=== PATIENT | female | born 2000 | race Two or more races ===

== ENCOUNTER 2023-04-04 07:43 | Emergency (ER) | payer SELFPAY ==
[~2023-04-04] VITALS: Ht 157.5 cm; Wt 76.0 kg
[2023-04-04 08:28] LABS: Basophils # (auto) 0.1 10 ^3/uL (0-0.2); Basophils % (auto) 0.5 % (0.0-2.0); Eosinophils # (auto) 0 10 ^3/uL (0-0.8); Eosinophils % (auto) 0.2 % (0.0-7.0); Hemoglobin 15.9 g/dL (12.2-16.2); Lymphocytes # (auto) 2.3 10 ^3/uL (0.4-5.4); Lymphocytes % (auto) 11.7 % (10.0-50.0); Mean Corpuscular Hemoglobin 30.6 pg (28.0-32.0); Mean Corpuscular Hgb Conc. 33.8 g/dL (32.0-36.0); Mean Corpuscular Volume 90.3 fL (80.0-100.0); Monocytes # (auto) 0.8 10 ^3/uL (0-1.3); Monocytes % (auto) 3.9 % (0.0-12.0); Neutrophils # (auto) 16.7 10 ^3/uL (1.6-8.6); Neutrophils % (auto) 83.7 % (37.0-80.0); Nucleated Red Blood Cells % 0.1 %; Red Blood Cells 5.21 10^6/uL (4.0-5.20); Red Cell Distribution Width 12.8 % (11.8-14.3); White Blood Cell 19.9 10^3/uL (4.4-10.8)
[2023-04-04 08:29] VITALS: PULSE 68; RESP 14; O2SAT 97
[2023-04-04] MEDS ORDERED: ONDANSETRON HCL 4 MG/2 ML VIAL IV ONE (08:30)
[2023-04-04 08:31] VITALS: BP 136/108; PULSE 68; RESP 11; TEMP 98.1; O2SAT 100
[2023-04-04 08:35] LABS: Albumin 3.2 g/dL (3.4-5.0); Potassium 3.6 mmol/L (3.5-5.1)
[2023-04-04 08:39] LABS: BUN/Creatinine Ratio 16.2 (10.0-20.0); Bilirubin, Total 0.4 mg/dL (0.2-1.0); Total Protein 6.5 g/dL (6.4-8.2)
[2023-04-04 08:50] LABS: Urine Bacteria FEW /hpf (None Seen); Urine Blood Negative /uL (Negative); Urine Clarity Clear (Clear); Urine Color Yellow (Yellow); Urine Mucus FEW (None Seen); Urine Protein, UAD Negative (Negative); Urine Specific Gravity 1.021 (1.001-1.035); Urine Urobilinogen Normal (Negative); Urine WBC 5 /hpf (0 - 5)
[2023-04-04] MEDS ORDERED: NITR-87 PO (10:05)
[2023-04-04] MEDS ORDERED: cefTRIAXone 1GM/50ML D5W 50 ML IV ONE (10:15)
== END 2023-04-04 10:33 | disposition home or self-care (01) ==
LOC: ER 07:43
DX: N39.0 Urinary tract infection, site not specified (principal); R10.2 Pelvic and perineal pain; R10.84 Generalized abdominal pain
CPT/HCPCS: 36415; 74176; 80053; 81001; 83690; 84702; 85025; 96365; 96375; 99285; J0696; J2405

== ENCOUNTER 2025-04-29 12:29 | Inpatient (IN) | payer MEDICAID, OTHER ==
[~2025-04-29] VITALS: Ht 157.5 cm; Wt 70.9 kg
[~2025-04-29 12:29] MED LIST: NITR-87 PO
--- NOTE | 2025-04-29 12:45 | ED.PDOC ---
GI ASSESSMENT HPI Comments 25 y/o F, with no prior medical history presents to the ED for CC of nausea/vomiting. Patient states, she has been experiencing symptoms of nausea and vomiting sudden onset, 2200 last night (04/28/25). Patient reports, she has been unable to keep anything down following commencement of symptoms. Patient denies fever, sweats, hematemesis, diarrhea, or urinary symptoms. No other symptoms or modifying factors are present at this time. Chief Complaint: Nausea/Vomiting Time Seen by MD: 12:45 Reviewed Notes: Nurses Notes, Medications, Allergies Allergies: Coded Allergies: NO KNOWN ALLERGIES (Unverified , 04/04/23) Home Meds Active Scripts Nitrofurantoin Monohydrate Mac (Macrobid) 100 Mg Cap, 100 MG PO BID for 7 Days, #14 CAP Prov:NICKY KAY MD 04/04/23 Information Source: Patient Mode of Arrival: Ambulatory Timing: Hours Duration: Since onset Prehospital treatment: None Quality: None Vomitus: Watery Stool: Normal Severity: Moderate Recent: None Recent Hx of: None Pain Location: None Modifying Factors: Nothing Associated sign and symptoms: Nausea, Vomiting Past Medical History PAST MEDICAL HISTORY: Unknown Surgical History: Unknown 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 Family History Family History: Family hx of HTN Social History Smoker: Non-Smoker Alcohol: Occasionally Drugs: Denies Drug Use Lives In: Home Constitutional: denies: chills, diaphoresis, fatigue, fever, malaise, sweats, weakness, others EENTM: denies: blurred vision, double vision, ear bleeding, ear discharge, ear drainage, ear pain, ear ringing, eye pain, eye redness, hearing loss, mouth pain, mouth swelling, nasal discharge, nose bleeding, nose congestion, nose pain, photophobia, tearing, throat pain, throat swelling, voice changes, others Respiratory: denies: cough, hemoptysis, orthopnea, SOB at rest, shortness of breath, SOB with excertion, stridor, wheezing, others Cardiovascular: denies: chest pain, dizzy spells, diaphoresis, Dyspnea on exertion, edema, irregular heart beat, left arm pain, lightheadedness, palpitations, PND, syncope, others Gastrointestinal: reports: nausea, vomiting; denies: abdomen distended, abdominal pain, blood streaked bowels, constipated, diarrhea, dysphagia, difficulty swallowing, hematemesis, melena, poor appetite, poor fluid intake, rectal bleeding, rectal pain, others Genitourinary: denies: abnormal vagina bleeding, burning, dyspareunia, dysuria, flank pain, frequency, hematuria, incontinence, pain, , vagina discharge, urgency, others Neurological: denies: dizziness, fainting, headache, left sided numbness, left sided weakness, numbness, paresthesia, pre-existing deficit, right sided numbness, right sided weakness, seizure, speech problems, tingling, tremors, weakness, others Musculoskeletal: denies: back pain, gout, joint pain, joint swelling, muscle pain, muscle stiffness, neck pain, others Integumetry: denies: bruises, change in color, change in hair/nails, dryness, laceration, lesions, lumps, rash, wounds, others Allergic/Immunocompromised: denies: Difficulty Healing, Frequent Infections, Hives, Itching, others Hematologic/Lymphatic: denies: anemia, blood clots, easy bleeding, easy br uising, swollen glands, others Endocrine: denies: excessive hunger, excessive sweating, excessive thirst, excessive urination, flushing, intolerance to cold, intolerance to heat, unexplained weight gain, unexplained weight loss, others Psychiatric: denies: anxiety, bipolar disorder, depression, hopeless, panic disorder, schizophrenia, sleepless, suicidal, others All Other Systems: Reviewed and Negative Physical Exam General Appearance: Moderate Distress HEENT: Normal ENT Inspection, Pharynx Normal, TMs Normal Neck: Full Range of Motion, Non-Tender, Normal, Normal Inspection Respiratory: Chest Non-Tender, Lungs Clear, No Accessory Muscle Use, No Respiratory Distress, Normal Breath Sounds Cardiovascular: No Edema, No JVD, No Murmur, No Gallop, Tachycardia Breast Exam: Deferred Gastrointestinal: No Organomegaly, Non Tender, No Pulsatile Mass, Normal Bowel Sounds, Soft Genitalia: Deferred Pelvic: Deferred Rectal: Deferred Extremities: No calf tenderness, Normal capillary refill, Normal inspection, Normal range of motion, Non-tender, No pedal edema Musculoskeletal : Apperance: Normal Neurologic: Alert, painter tumbling barrel II-XII nml as Tested, No Motor Deficits, Normal Affect, Normal Mood, No Sensory Deficits Cerebellar Function: Normal Reflexes: Normal Skin: Dry, Normal Color, Warm Lymphatic: No Adenopathy EKG EKG : Pulse Rate (adult): 156 [place]: Normal Cardiac Rhythm: ST Block: None ST: Nonsp Was a procedure done? Was a procedure done?: No GI differential Dx Differential Diagnosis: Gastritis/PUD, Gastroenteritis, Electrolyte Imbalance, Food Poisoning, Bacterial, Viral X-Ray, Labs, Meds, VS Vital Signs Date Time Temp Pulse Resp B/P (MAP) Pulse Ox O2 Delivery O2 Flow Rate FiO2 04/29/25 17:31 152 26 158/101 (120) 98 04/29/25 17:31 152 26 98 Room Air* 0 21 04/29/25 16:49 165 04/29/25 16:18 184/120 04/29/25 16:11 98.3 110 17 184/120 (141) 97 98.3 04/29/25 14:32 97.7 113 16 193/132 (152) 99 97.7 04/29/25 13:22 18 98 Room Air* 0 21 04/29/25 13:19 98.7 123 17 164/124 (137) 98 98.7 04/29/25 13:19 123 16 98 Room Air 04/29/25 12:31 99.0 129 15 160/107 95 99.0 Lab Test 04/29/25 15:47 04/29/25 13:27 04/29/25 13:00 Range/Units Lipase 36 12-53 U/L Plasma/Serum Blood Alcohol < 3.0 <10 mg/dL White Blood Count 10.8 4.4-10.8 10^3/uL Red Blood Count 5.21 H 4.0-5.20 10^6/uL Hemoglobin 16.3 H 12.2-16.2 g/dL Hematocrit 46.4 H 36.0-46.0 % Mean Corpuscular Volume 89.1 80.0-100.0 fL Mean Corpuscular Hemoglobin 31.3 28.0-32.0 pg Mean Corpuscular Hemoglobin Concent 35.1 32.0-36.0 g/dL Red Cell Distribution Width 13.5 11.8-14.3 % Platelet Count 490 H 140-450 10^3/uL Mean Platelet Volume 7.1 6.9-10.8 fL Neutrophils (%) (Auto) 89.9 H 37.0-80.0 % Lymphocytes (%) (Auto) 4.8 L 10.0-50.0 % Monocytes (%) (Auto) 5.1 0.0-12.0 % Eosinophils (%) (Auto) 0.1 0.0-7.0 % Basophils (%) (Auto) 0.1 0.0-2.0 % Neutrophils # (Auto) 9.7 H 1.6-8.6 10 ^3/uL Lymphocytes # (Auto) 0.5 0.4-5.4 10 ^3/uL Monocytes # (Auto) 0.5 0-1.3 10 ^3/uL Eosinophils # (Auto) 0 0-0.8 10 ^3/uL Basophils # (Auto) 0 0-0.2 10 ^3/uL Nucleated Red Blood Cells 0.0 % D-Dimer, Quantitative 0.55 H 0.0-0.49 mg/L FEU Sodium Level 140 136-145 mmol/L Potassium Level 4.6 3.5-5.1 mmol/L Chloride Level 99 98-107 mmol/L Carbon Dioxide Level 20 20-31 mmol/L Anion Gap 21 H 5-15 Blood Urea Nitrogen 12 9-23 mg/dL Creatinine 0.96 0.550-1.02 mg/dL Glomerular Filtration Rate Calc 84 >90 mL/min BUN/Creatinine Ratio 12.5 10.0-20.0 Serum Glucose 182 H 74-106 mg/dL Calcium Level 10.3 8.7-10.4 mg/dL Urine Color Yellow Yellow Urine Clarity Turbid H Clear Urine pH 5.5 5.0-9.0 Urine Specific [place] 1.029 1.001-1.035 Urine Protein 2+ H Negative Urine Ketones 4+ H Negative Urine Blood Trace H Negative /uL Urine Nitrite Negative Negative Urine Bilirubin 1+ H Negative Urine Urobilinogen 2 H Negative mg/dL Urine Leukocyte Esterase Negative Negative /uL Urine RBC 4 0 - 4 /hpf Urine Microscopic WBC 5 0-5 /HPF Urine Squamous Epithelial Cells Few <5 /hpf Urine Bacteria Few H None Seen /hpf Urine Hyaline Casts Many 0 - 2 /lpf Urine Mucus Few None Seen Urine Glucose Trace Normal mg/dL Urine Test Negative Negative Urine Opiates Screen Pending Urine Fentanyl Screen Pending Urine Barbiturates Screen Pending Urine Phencyclidine Screen Pending Urine Amphetamines Screen Pending Urine Benzodiazepines Screen Pending Urine Cocaine Screen Pending Urine Cannabinoids Screen Pending Current Medications Medications (Trade) Dose Ordered Sig/Zahida Route Start Time Stop Time Status Last Admin Sodium Chloride 1,000 ml @ 1,000 mls/hr Q1H ONCE IV 04/29/25 13:00 04/29/25 13:59 DC 04/29/25 16:10 Ondansetron HCl (Zofran) 4 mg ONCE ONCE IV 04/29/25 13:00 04/29/25 13:01 DC 04/29/25 13:24 Hydralazine HCl (Apresoline Injection) 20 mg ONCE ONCE IV 04/29/25 15:45 04/29/25 15:57 DC 04/29/25 16:18 Prochlorperazine Edisylate (Compazine Inj) 10 mg ONCE ONCE IV 04/29/25 17:00 04/29/25 17:01 DC 04/29/25 17:27 Adenosine (Adenosine) 6 mg ONCE ONCE IV 04/29/25 17:15 04/29/25 17:16 DC 04/29/25 17:22 IV Hep-Lock was established The patient was given a 1 L bolus of normal saline The patient was given Zofran 4 mg IV push for the nausea and vomiting The patient was given hydralazine 20 mg IV push The patient was given Compazine 10 mg IV push for the vomiting We then try adenosine 6 mg IV push with no significant conversion. The heart rate went down to around 100 and then went back up to around 156 At this time the patient is being given labetalol 10 mg IV push The patient is being admitted to the hospitalist The CBC is within normal limits The D-dimer is 0.55 The patient is being admitted Images Reviewed?: Images reviewed and evaluated by me Time of 1ST Reevaluation: 13:15 Reevaluation 1ST: Unchanged Patient Education/Counseling: Diagnosis, Treatment, Prognosis Family Education/Counseling: No Family Present SEPSIS Sepsis Screen Date sepsis recognized/suspect: Apr 29, 2025 Time Sepsis recognized/suspect: 1234 Recent Procedure: No Respiratory Rate >20: No Heart Rate >90: Yes Temp<36 C (96.8 F) or >38.3 C: No SBP <90 or MAP <65 mmHG: No New Acute Mental Status Change: No Is the patient on CPAP, BIPAP,: No Physician Orders Heplock Iv (04/29/25 12:50) Drug Screen (04/29/25 15:37) Electrocardigram (04/29/25 17:07) Labetalol Hcl (Labetalol Hcl) (04/29/25 17:45) Vital Signs Date Time Temp Pulse Resp B/P (MAP) Pulse Ox O2 Delivery O2 Flow Rate FiO2 04/29/25 17:31 152 26 158/101 (120) 98 04/29/25 17:31 152 26 98 Room Air* 0 21 04/29/25 16:49 165 04/29/25 16:18 184/120 04/29/25 16:11 98.3 110 17 184/120 (141) 97 98.3 04/29/25 14:32 97.7 113 16 193/132 (152) 99 97.7 04/29/25 13:22 18 98 Room Air* 0 21 04/29/25 13:19 98.7 123 17 164/124 (137) 98 98.7 04/29/25 13:19 123 16 98 Room Air 04/29/25 12:31 99.0 129 15 160/107 95 99.0 Laboratory Tests Test 04/29/25 13:27 White Blood Count 10.8 10^3/uL (4.4-10.8) Medications Medications Dose Ordered Sig/Zahida Route Start Time Stop Time Status Last Admin Dose Admin Adenosine 6 mg ONCE ONCE IV 04/29/25 17:15 04/29/25 17:16 DC 04/29/25 17:22 Hydralazine HCl 20 mg ONCE ONCE IV 04/29/25 15:45 04/29/25 15:57 DC 04/29/25 16:18 Ondansetron HCl 4 mg ONCE ONCE IV 04/29/25 13:00 04/29/25 13:01 DC 04/29/25 13:24 Prochlorperazine Edisylate 10 mg ONCE ONCE IV 04/29/25 17:00 04/29/25 17:01 DC 04/29/25 17:27 Sodium Chloride 1,000 ml @ 1,000 mls/hr Q1H ONCE IV 04/29/25 13:00 04/29/25 13:59 DC 04/29/25 16:10 Departure 1 Departure Time of Disposition: 17:38 Impression: Primary Impression: Accelerated hypertension Additional Impressions: Tachycardia Vomiting Qualified Codes: R11.14 - Bilious vomiting Disposition: ADMITTED INPATIENT Admit to: Tele Condition: Fair Critical Care Note Critical Care Time?: No Stability Stability form required: No Heart Score Heart Score: Heart Score Response (Comments) Value History N/A 0 EKG N/A 0 Age N/A 0 Risk Factors N/A 0 Troponin N/A 0 Total 0 I personally scribed for WARREN BUSH MD ([email or web address]) on 04/29/25 at 12:45. Electronically submitted by Anita Lizarraga ([employer] I personally scribed for WARREN BUSH MD ([email or web address]) on 04/29/25 at 12:53. Electronically submitted by Anita Lizarraga ([employer] I personally scribed for WARREN BUSH MD ([email or web address]) on 04/29/25 at 13:37. Electronically submitted by Anita Lizarraga ([employer] WARREN BUSH MD Apr 29, 2025 12:45
[2025-04-29 13:22] VITALS: RESP 18; O2SAT 98
[2025-04-29] MEDS: ONDANSETRON HCL 4 MG/2 ML VIAL IV ONE (13:24)
[2025-04-29 13:52] LABS: Hematocrit 46.4 % (36.0-46.0); Hemoglobin 16.3 g/dL (12.2-16.2); Mean Corpuscular Hemoglobin 31.3 pg (28.0-32.0); Mean Corpuscular Volume 89.1 fL (80.0-100.0); Nucleated Red Blood Cells % 0.0 %
[2025-04-29 14:12] LABS: Chloride 99 mmol/L (98-107); Potassium 4.6 mmol/L (3.5-5.1); Sodium 140 mmol/L (136-145)
[2025-04-29 14:13] LABS: Anion Gap 21 (5-15); Calcium 10.3 mg/dL (8.7-10.4); Carbon Dioxide 20 mmol/L (20-31)
[2025-04-29 14:18] LABS: BUN/Creatinine Ratio 12.5 (10.0-20.0); Blood Urea Nitrogen 12 mg/dL (9-23)
[2025-04-29 14:20] LABS: Glucose 182 mg/dL (74-106)
[2025-04-29 15:22] LABS: Urine Protein, UAD 2+ (Negative)
[2025-04-29] MEDS: SODIUM CHLORIDE 0.9% 1,000 ML IV ONE ×3 (16:10→20:45)
[2025-04-29] MEDS: hydrALAZINE HCL 20 MG/ML VL IV ONE (16:18)
[2025-04-29] MEDS: ADENOSINE 6 MG/2 ML INJ IV ONE (17:22)
[2025-04-29] MEDS: PROCHLORPERAZINE EDISYLATE 5 MG/ML 2ML VIAL IV ONE (17:27)
[2025-04-29 17:31] VITALS: PULSE 152; RESP 26; O2SAT 98
[2025-04-29] MEDS: LABETALOL HCL 20 MG/4 ML VL IV ONE (17:40)
[2025-04-29 18:33] LABS: Amphetamine Screen, Urine Neg (NEGATIVE); Barbiturate Scree,Urine Neg (NEGATIVE); Benzodiazephine Screen, Urine Neg (NEGATIVE); Cannabinoid Screen, Urine Neg (NEGATIVE); Cocaine Screen, Urine Neg (NEGATIVE); Opiate Scree,Urine Neg (NEGATIVE); Phencyclidine Screen, Urine Neg (NEGATIVE)
--- NOTE | 2025-04-29 19:09 | ECG ---
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
[2025-04-29 19:40] VITALS: PULSE 140; RESP 24; O2SAT 98
[2025-04-29 21:40] LABS: Potassium 3.6 mmol/L (3.5-5.1); Sodium 142 mmol/L (136-145)
[2025-04-29 21:41] LABS: Anion Gap 13 (5-15); Calcium 8.0 mg/dL (8.7-10.4); Carbon Dioxide 21 mmol/L (20-31); Chloride 108 mmol/L (98-107)
[2025-04-29 21:46] LABS: BUN/Creatinine Ratio 16.9 (10.0-20.0); Blood Urea Nitrogen 11 mg/dL (9-23)
[2025-04-29 21:52] LABS: Glucose 133 mg/dL (74-106)
[2025-04-30] VITALS (7 sets, daily range): BP systolic 123–166; BP diastolic 80–108; PULSE 79–119; RESP 17–21; TEMP 98.4–99.1; O2SAT 95–100
[2025-04-30 01:13] LABS: Hematocrit 36.6 % (36.0-46.0); Hemoglobin 12.4 g/dL (12.2-16.2); Mean Corpuscular Hemoglobin 30.0 pg (28.0-32.0); Mean Corpuscular Volume 88.3 fL (80.0-100.0); Nucleated Red Blood Cells % 0.0 %
[2025-04-30 01:28] LABS: INR 1.11 (0.9-1.15); Prothrombin Time 11.6 sec (9.3-11.8)
[2025-04-30 01:31] LABS: Albumin 4.0 g/dL (3.2-4.8); Alkaline Phosphatase 67 U/L (46-116); Anion Gap 11 (5-15); BUN/Creatinine Ratio 12.5 (10.0-20.0); Bilirubin, Total 0.7 mg/dL (0.2-1.0); Carbon Dioxide 22 mmol/L (20-31); Chloride 105 mmol/L (98-107); Potassium 3.6 mmol/L (3.5-5.1); Sodium 138 mmol/L (136-145); Total Protein 6.8 g/dL (5.7-8.2)
[2025-04-30 01:37] LABS: Alanine Aminotransferase 41 U/L (7-40); Blood Urea Nitrogen 7 mg/dL (9-23); Calcium 8.3 mg/dL (8.7-10.4); Glucose 126 mg/dL (74-106)
--- NOTE | 2025-04-30 04:08 | DVHHPRES ---
History of Present Illness Resident Creating Document: MEGHANA GUTIERRES RESIDENT History of Present Illness Jessica Garcia is a 25-year-old female with no prior medical history presented to the ED with chief complaints of intractable nausea and vomiting which was sudden in onset, associated with 4 episodes of watery diarrhea since Tuesday night, noticed little amount of blood in the vomit. patient was unable to keep anything down and vomited every 5 minutes, says she had left-sided abdominal pain due to cramps and felt dizzy and dehydrated. patient also complained of mild pain in the throat and substernal pain. Patient has irregular periods with last menstrual period being 3 months ago. Patient denies any recent travel, sick contacts, eating outside. On arrival patient was tachycardic, tachypneic. Patient presented with Anion Gap Metabolic acidosis likely due to Vomiting. Patient feels a lot better since admission. Past surgical history: Denies Family history: Reviewed, noncontributory Personal history: quit smoking in 2022, 5 drinks per week, denies drug use lives with : family Review of Systems Constitutional: Yes: Weakness; No: Fever, Chills, Sweats, Malaise, Other Eyes: No: Pain, Vision change, Conjunctivae inflammation, Eyelid inflammation, Other, Redness ENT: No: Ear pain, Ear discharge, Nose pain, Nose discharge, Nose congestion, Mouth pain, Mouth swelling, Throat pain, Throat swelling, Other Respiratory: No: Cough, Dry, Shortness of breath, SOB with excertion, Wheezing, Hemoptysis, Pleuritic Pain, Sputum, Wheezing, Other Cardiovascular: No: Chest Pain, Palpitations, Orthopnea, Paroxysmal Noc. Dyspnea, Edema, Lt Headedness, Other Gastrointestinal: Nausea, Vomiting, Abdominal Pain Genitourinary: No Dysuria, No Frequency, No Incontinence, No Hematuria, No Retention, No Other Musculoskeletal: No: other, neck pain, shoulder pain, arm pain, back pain, hand pain, leg pain, foot pain Skin: No: Rash, Lesions, Jaundice, Bruising, Other Neurological: No: Weakness, Numbness, Incoordination, Change in speech, Confusion, Seizures, Other Allergies: Coded Allergies: NO KNOWN ALLERGIES (Unverified , 04/04/23) Medications Current Medications Medications Dose Ordered Sig/Zahida Route Start Time Stop Time Status Last Admin Dose Admin Acetaminophen/ Hydrocodone Bitart 1 tab Q4HP PRN PO 04/30/25 00:30 Ondansetron HCl 4 mg Q4HP PRN IV 04/30/25 00:30 Ceftriaxone Sodium 50 ml @ 100 mls/hr DAILY@09 IV 05/01/25 09:00 Metronidazole 100 ml @ 100 mls/hr Q8HR IV 04/30/25 06:00 Exam Vital Signs Vital Signs Date Time Temp Pulse Resp B/P (MAP) Pulse Ox O2 Delivery O2 Flow Rate FiO2 04/30/25 02:00 116 19 130/85 (100) 97 04/29/25 19:40 Room Air* 0 21 04/29/25 19:35 98.7 98.7 Exam General: Patient alert and oriented in person, place and time. Patient following commands. In No distress HEENT: Normocephalic, atraumatic, moist mucous membranes Respiratory/pulmonary: Clear lungs bilaterally, vesicular murmurs present in almost all lung dan, no associated crackles or wheezes. Cardiovascular: Normal heart sounds S1 and S2 with no associated murmurs Abdomen: Mild right-sided tenderness Extremities: There is no peripheral edema present at the lower extremities. Peripheral Pulses: 3+ Radial (R). 3+ Radial (L). 3+ Dorsalis pedis (R). 3+ Dorsalis pedis(L) Skin: No rashes or pruritus, there is no sacral edema present at this time. Neurological: Intact cranial nerves with no focal neurologic deficits Psych, mood: Normal psych, mood Labs/Xrays Labs Test 04/30/25 00:59 04/29/25 21:06 04/29/25 15:47 04/29/25 13:27 Range/Units White Blood Count 14.8 #H 4.4-10.8 10^3/uL Red Blood Count 4.14 4.0-5.20 10^6/uL Hemoglobin 12.4 # 12.2-16.2 g/dL Hematocrit 36.6 # 36.0-46.0 % Mean Corpuscular Volume 88.3 80.0-100.0 fL Mean Corpuscular Hemoglobin 30.0 28.0-32.0 pg Mean Corpuscular Hemoglobin Concent 34.0 32.0-36.0 g/dL Red Cell Distribution Width 13.3 11.8-14.3 % Platelet Count 347 140-450 10^3/uL Mean Platelet Volume 6.8 L 6.9-10.8 fL Neutrophils (%) (Auto) 80.3 H 37.0-80.0 % Lymphocytes (%) (Auto) 8.2 L 10.0-50.0 % Monocytes (%) (Auto) 11.2 0.0-12.0 % Eosinophils (%) (Auto) 0.0 0.0-7.0 % Basophils (%) (Auto) 0.3 0.0-2.0 % Neutrophils # (Auto) 11.9 H 1.6-8.6 10 ^3/uL Lymphocytes # (Auto) 1.2 0.4-5.4 10 ^3/uL Monocytes # (Auto) 1.7 H 0-1.3 10 ^3/uL Eosinophils # (Auto) 0 0-0.8 10 ^3/uL Basophils # (Auto) 0 0-0.2 10 ^3/uL Nucleated Red Blood Cells 0.0 % Prothrombin Time 11.6 9.3-11.8 sec Prothrombin Time INR 1.11 0.9-1.15 Sodium Level 138 136-145 mmol/L Potassium Level 3.6 3.5-5.1 mmol/L Chloride Level 105 98-107 mmol/L Carbon Dioxide Level 22 20-31 mmol/L Anion Gap 11 5-15 Blood Urea Nitrogen 7 L 9-23 mg/dL Creatinine 0.56 0.550-1.02 mg/dL Glomerular Filtration Rate Calc 129 >90 mL/min BUN/Creatinine Ratio 12.5 10.0-20.0 Serum Glucose 126 H 74-106 mg/dL Calcium Level 8.3 L 8.7-10.4 mg/dL Total Bilirubin 0.7 0.2-1.0 mg/dL Aspartate Amino Transferase (AST) 25 13-40 U/L Alanine Aminotransferase (ALT) 41 H 7-40 U/L Alkaline Phosphatase 67 46-116 U/L Total Protein 6.8 5.7-8.2 g/dL Albumin 4.0 3.2-4.8 g/dL Troponin I High Sensitivity 8 </=34 ng/L Lipase 36 12-53 U/L Plasma/Serum Blood Alcohol < 3.0 <10 mg/dL D-Dimer, Quantitative 0.55 H 0.0-0.49 mg/L FEU Test 04/29/25 13:00 Range/Units Urine Color Yellow Yellow Urine Clarity Turbid H Clear Urine pH 5.5 5.0-9.0 Urine Specific [place] 1.029 1.001-1.035 Urine Protein 2+ H Negative Urine Ketones 4+ H Negative Urine Blood Trace H Negative /uL Urine Nitrite Negative Negative Urine Bilirubin 1+ H Negative Urine Urobilinogen 2 H Negative mg/dL Urine Leukocyte Esterase Negative Negative /uL Urine RBC 4 0 - 4 /hpf Urine Microscopic WBC 5 0-5 /HPF Urine Squamous Epithelial Cells Few <5 /hpf Urine Bacteria Few H None Seen /hpf Urine Hyaline Casts Many 0 - 2 /lpf Urine Mucus Few None Seen Urine Glucose Trace Normal mg/dL Urine Test Negative Negative Urine Opiates Screen Neg NEGATIVE Urine Fentanyl Screen Neg NEGATIVE Urine Barbiturates Screen Neg NEGATIVE Urine Phencyclidine Screen Neg NEGATIVE Urine Amphetamines Screen Neg NEGATIVE Urine Benzodiazepines Screen Neg NEGATIVE Urine Cocaine Screen Neg NEGATIVE Urine Cannabinoids Screen Neg NEGATIVE SEPSIS Sepsis Screen Date sepsis recognized/suspect: Apr 29, 2025 Time Sepsis recognized/suspect: 1828 Recent Procedure: No On Antibiotic Therapy: No Respiratory Rate >20: Yes Heart Rate >90: Yes Temp<36 C (96.8 F) or >38.3 C: No SBP <90 or MAP <65 mmHG: No New Acute Mental Status Change: No Is the patient on CPAP, BIPAP,: No Physician Orders Electrocardigram (04/29/25 20:53) Admit (04/30/25 00:19) Allergies (04/30/25 00:19) Code Status (04/30/25 00:19) Hydrocodone-Acet 5/325mg Tab (Cable 5/32 (04/30/25 00:30) Ondansetron Hcl (Zofran) (04/30/25 00:30) Npo (Nothing By Mouth) Diet (04/30/25 Breakfast) Condition: Serious (04/30/25 00:19) Bedrest With Bathroom Privileg (04/30/25 00:19) Notify Md Of Changes From Base (04/30/25 00:19) Emergency Dysrhythmia Protocol (04/30/25 00:19) Rhythm Strips Once Every Shift (04/30/25 00:19) Fisheries Director For 24 Hours (04/30/25 00:19) Stat Ekg For Chest Pain (04/30/25 00:19) Metronidazole 500mg/100ml (Flagyl 500mg/ (04/30/25 06:00) Ceftriaxone 1gm/50ml D5w (Rocephin) (05/01/25 09:00) Vital Signs Date Time Temp Pulse Resp B/P (MAP) Pulse Ox O2 Delivery O2 Flow Rate FiO2 04/30/25 02:00 116 19 130/85 (100) 97 04/30/25 00:00 127 04/29/25 23:42 126 27 138/92 (107) 95 04/29/25 22:43 130 04/29/25 21:15 132 31 132/82 (99) 95 04/29/25 20:00 132 Laboratory Tests Test 04/30/25 00:59 White Blood Count 14.8 10^3/uL (4.4-10.8) #H Medications Medications Dose Ordered Sig/Zahida Route Start Time Stop Time Status Last Admin Dose Admin Adenosine 6 mg ONCE ONCE IV 04/29/25 17:15 04/29/25 17:16 DC 04/29/25 17:22 6 MG Ceftriaxone Sodium 50 ml @ 100 mls/hr ONCE ONCE IV 04/30/25 00:45 04/30/25 01:14 DC 04/30/25 00:45 100 MLS/HR Labetalol HCl 10 mg ONCE ONCE IV 04/29/25 17:45 04/29/25 17:46 DC 04/29/25 17:40 10 MG Metronidazole 100 ml @ 100 mls/hr ONCE ONCE IV 04/30/25 00:45 04/30/25 01:44 DC 04/30/25 01:17 100 MLS/HR Prochlorperazine Edisylate 10 mg ONCE ONCE IV 04/29/25 17:00 04/29/25 17:01 DC 04/29/25 17:27 10 MG Sodium Chloride 1,000 ml @ 1,000 mls/hr Q1H ONCE IV 04/29/25 19:00 04/29/25 19:59 DC 04/29/25 19:01 1,000 MLS/HR Sodium Chloride 1,000 ml @ 1,000 mls/hr Q1H ONCE IV 04/29/25 20:30 04/29/25 21:33 DC 04/29/25 20:45 1,000 MLS/HR Assessment/Plan Assessment/Plan # sepsis likely due to gastroenteritis infectious vs noninfectious # intractable nausea and vomiting # anionic gap Metabolic Acidosis likely due to severe vomiting # severe Dehydration # starvation ketosis # rule out Boerhaave syndrome - IV fluids '- check lactic acid, pending - IV metronidazole 500mg - Stool Occult blood, WBC, culture, C diff - blood culture ordered - Abdomen CT ordered # rule out Aspration Pneumonia - Chest Xray # acute complicated UTI # history of UTI - IV Ceftriaxone - urine culture ordered - STI panel # polysubstance abuse disorder - patient counseled on cessation of smoking, alcohol for 13 minutes PPI prophylaxis: Protonix 40 mg DVT prophylaxis: Not Indicated Goals of care addressed with the patient for more than 31 minutes: Full code status Case discussed with , patient and nurse Plan discussed with: Patient My Orders Orders - MEGHANA GUTIERRES RESIDENT Procedure Category Date Status Time Admit ADMIT 04/30/25 Transmitted 00:19 Allergies MARIO 04/30/25 In Process 00:19 Code Status CODE 04/30/25 Transmitted 00:19 Hydrocodone-Acet PHA 04/30/25 In Process 5/325mg Tab (Cable 00:30 Ondansetron Hcl PHA 04/30/25 In Process (Zofran) 00:30 Npo (Nothing By DIET 04/30/25 Transmitted Mouth) Diet Breakfast Condition: Serious MARIO 04/30/25 In Process 00:19 Bedrest With Bathroom MARIO 04/30/25 In Process Privileg 00:19 Notify Md Of Changes 04/30/25 In Process From Base 00:19 Emergency Dysrhythmia MARIO 04/30/25 In Process Protocol 00:19 Rhythm Strips Once MARIO 04/30/25 In Process Every Shift 00:19 Fisheries Director For MARIO 04/30/25 In Process 24 Hours 00:19 Stat Ekg For Chest MARIO 04/30/25 In Process Pain 00:19 Metronidazole PHA 04/30/25 In Process 500mg/100ml (Flagyl 06:00 Ceftriaxone 1gm/50ml PHA 05/01/25 In Process D5w (Rocephin) 09:00 Date of Service: Apr 30, 2025 Billing Provider: ALPA MONROE MD Common Visit Codes: 29275-[id number] INP/OBS CARE (HIGH) Secondary Visit Codes: [id number] CARE PLAN 30 MINUTES MEGHANA GUTIERRES RESIDENT Apr 30, 2025 04:08
[2025-04-30] MEDS: HYDROcodone-ACET 5/325MG TAB PO PRN (04:11)
[2025-04-30] MEDS: SODIUM CHLORIDE 0.9% 1,000 ML IV SCH (04:21)
[2025-04-30] MEDS: LACTATED RINGER'S 1,000 ML IV SCH (05:30)
[2025-04-30] MEDS: LACTATED RINGER'S 1,500 ML IV ONE (05:30)
[2025-04-30] MEDS ORDERED: PANTOPRAZOLE 40 MG/10 ML VIAL INJ IV ONE (05:30)
[2025-04-30] MEDS: PANTOPRAZOLE 40 MG/10 ML VIAL INJ IV ONE (05:47)
--- NOTE | 2025-04-30 06:20 | DVH ---
CHEST RADIOGRAPH Indication: upright rule out free air and aspiration pneumonia Technique: Single frontal view of the chest was obtained COMPARISON: None FINDINGS: Lines and Tubes: None Lungs: Clear Pleura: No effusion. No pneumothorax. Cardiomediastinal contours: Unremarkable Bones: Unremarkable IMPRESSION: 1. No acute disease.
--- NOTE | 2025-04-30 06:30 | ECG ---
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
--- NOTE | 2025-04-30 07:04 | DVH ---
Exam: CT CT AB PEL WO CON-NO ORAL OR IV History: Ruled out intra-abdominal pathology Comparison Study: CT CT AB PEL WO CON-NO ORAL OR IV on DOS: 04/04/23 Technique: Multidetector spiral CT of the abdomen and pelvis was performed from lung bases to pubic s ymphysis. Imaging was performed without intravenous contrast. Coronal and sagittal multiplanar reform ats were obtained from the axial data set by the technologist. Radiation Dose : 1. Abdomen/Pelvis: CTDIvol 10.85 mGy, DLP 627.66 mGy*cm. Findings: Evaluation of vasculature and solid organs is limited due to lack of intravenous contrast use. Lung Bases: Lung bases are clear. Visualized portions of the heart and pericardium are unremarkable. Liver: The liver is normal in size. No focal lesions. Diffusely hypoattenuating liver parenchyma con sistent with hepatic steatosis. Gallbladder and Biliary Tree: The gallbladder is unremarkable. No intrahepatic or extrahepatic biliar y ductal dilatation. Spleen: Unremarkable Pancreas: The pancreas is grossly unremarkable. Adrenal Glands: Unremarkable Kidneys: Kidneys are unremarkable without calculi or hydronephrosis. GI tract: The stomach is grossly normal in appearance. No evidence of small bowel wall thickening or abnormal dilatation to suggest bowel obstruction. The colon is unremarkable. The appendix is not visu alized, however no inflammatory changes in the right lower quadrant to suggest acute appendicitis. Peritoneum/mesentery/retroperitoneum. No evidence of free intraperitoneal air. No ascites. No evidenc e of suspicious lymphadenopathy. Abdominal Wall: Unremarkable. Vasculature: The visualized abdominal aorta is normal in size and caliber. Evaluation of abdominal a nd pelvic vessels is limited due to lack of intravenous contrast. Urinary Bladder: Grossly unremarkable for degree of distention. Pelvic Organs: Unremarkable Musculoskeletal: No aggressive focal bony lesions, acute fractures or dislocation. IMPRESSION: 1. No acute abdominal or pelvic findings. 2. Hepatic steatosis.
--- NOTE | 2025-04-30 08:46 | DVH ---
Bilateral lower extremity venous duplex Clinical History: edema Comparison: None Findings: Duplex Doppler evaluation of the deep venous systems of both lower extremities from the common femora l veins to the popliteal veins including color Doppler and spectral/pulsed waveform analysis was perf ormed. RIGHT SIDE: The common femoral vein demonstrates appropriate compressibility and waveform variability. There is compressibility/patency of the great saphenous vein at the proximal thigh. The femoral vein demonstrates appropriate compressibility and waveform variability. The deep femoral vein demonstrates appropriate compressibility and waveform variability. The popliteal vein demonstrates appropriate compressibility and waveform variability. There is normal compressibility at the tibioperoneal trunk. LEFT SIDE: The common femoral vein demonstrates appropriate compressibility and waveform variability. There is compressibility/patency of the great saphenous vein at the proximal thigh. The femoral vein demonstrates appropriate compressibility and waveform variability. The deep femoral vein demonstrates appropriate compressibility and waveform variability. The popliteal vein demonstrates appropriate compressibility and waveform variability. There is normal compressibility at the tibioperoneal trunk. IMPRESSION: No right or left femoropopliteal venous thrombosis. If clinical concern/symptoms persist or worsen, short-interval follow-up study is suggested. END IMPRESSION:
[2025-04-30 09:36] LABS: Hematocrit 37.1 % (36.0-46.0); Hemoglobin 12.5 g/dL (12.2-16.2); Mean Corpuscular Hemoglobin 30.5 pg (28.0-32.0); Mean Corpuscular Volume 90.4 fL (80.0-100.0); Nucleated Red Blood Cells % 0.0 %
[2025-04-30] MEDS ORDERED: PANTOPRAZOLE 40 MG/10 ML VIAL INJ IV SCH (10:00)
[2025-04-30] MEDS: ONDANSETRON HCL 4 MG/2 ML VIAL IV PRN (10:53)
[2025-04-30 11:09] LABS: Anion Gap 12 (5-15); BUN/Creatinine Ratio 12.2 (10.0-20.0); Calcium 8.7 mg/dL (8.7-10.4); Carbon Dioxide 23 mmol/L (20-31); Chloride 102 mmol/L (98-107); Glucose 96 mg/dL (74-106); Potassium 3.7 mmol/L (3.5-5.1); Sodium 137 mmol/L (136-145)
[2025-04-30 11:10] LABS: Total Protein 7.1 g/dL (5.7-8.2)
[2025-04-30 11:11] LABS: Alanine Aminotransferase 41 U/L (7-40); Albumin 4.1 g/dL (3.2-4.8); Blood Urea Nitrogen 6 mg/dL (9-23)
[2025-04-30 11:12] LABS: Alkaline Phosphatase 70 U/L (46-116); Bilirubin, Total 1.0 mg/dL (0.2-1.0)
[2025-04-30] MEDS ORDERED: HYDR25TA5 PO (18:32)
--- NOTE | 2025-04-30 19:27 | DVHPNRES ---
Progress Note Date Seen: Apr 30, 2025 Resident Creating Document: CHACORTA CASAS RESIDENT Medical Necessity Reason Pt with a Central, PICC or Fol: No Subjective Review of Systems Jessica Garcia is a 25-year-old female who presented to the ED with chief complaints of intractable nausea and vomiting which was sudden in onset, associated with 4 episodes of watery diarrhea since Tuesday night, noticed little amount of blood in the vomit. patient was unable to keep anything down and vomited every 5 minutes, says she had left-sided abdominal pain due to cramps and felt dizzy and dehydrated. Patient also complained of mild pain in the throat and substernal pain. Patient has irregular periods with last menstrual period being 3 months ago. Patient denies any recent travel, sick contacts, eating outside. Past medical history: Hypertension Past surgical history: Denies Family history: Reviewed, noncontributory Social history: Lives in [place] with family. quit smoking in 2022, 5 drinks per week, denies drug use Allergies: Denies Home medication: Hydrochlorothiazide The patient was seen and examined at the bedside. No acute overnight events. She reports diarrhea improved since she was admitted. She denies any chest pain, shortness of breath, fever or any other complaints. Objective vital signs Vital Sign Date Time Temp Pulse Resp B/P (MAP) Pulse Ox O2 Delivery O2 Flow Rate FiO2 04/30/25 17:16 98.4 99 18 166/108 (127) 98 98.4 04/30/25 17:16 Room Air* 0 21 Total Intake and Output 04/29/25 04/29/25 04/30/25 15:00 23:00 07:00 Intake Total 1000 ml 250 ml Balance 1000 ml 250 ml medications Current Medications Medications Dose Ordered Sig/Zahida Route Start Time Stop Time Status Last Admin Dose Admin Acetaminophen/ Hydrocodone Bitart 1 tab Q4HP PRN PO 04/30/25 00:30 04/30/25 04:11 1 TAB Ondansetron HCl 4 mg Q4HP PRN IV 04/30/25 00:30 04/30/25 15:10 4 MG Ceftriaxone Sodium 50 ml @ 100 mls/hr DAILY@09 IV 05/01/25 09:00 Metronidazole 100 ml @ 100 mls/hr Q8HR IV 04/30/25 06:00 04/30/25 14:33 100 MLS/HR Pantoprazole Sodium 40 mg DAILY IV 05/01/25 10:00 Hydrochlorothiazide 12.5 mg DAILY PO 05/01/25 10:00 Examination Pt is lying on bed General Appearance: Alert, Oriented X3, Cooperative, Mild distress HEENT: Atraumatic, Mucous membranes moist/pink Respiratory: Clear to auscultation, Normal air movement, No added sounds Cardiovascular: Regular rate, Normal S1, Normal S2, No murmurs Abdominal/ : Active bowel sounds, Soft, no distention, no tenderness Extremities: No edema, Normal pulses, No tenderness/swelling Skin: No Significant rash, except past surgical scars Neuro: Normal speech, sensorimotor deficits none Psych/Mental Status: Mental status NL, Mood NL Nurse was there as product development manager during examination laboratory and microbiology Laboratory Tests 04/30/25 10:30 04/30/25 07:41 Test 04/30/25 10:30 Range/Units Serum Glucose 96 74-106 mg/dL Microbiology Date/Time Source Procedure Growth Status 04/30/25 05:06 Stool Ordered Labs and/or images reviewed: Labs reviewed by me, Image(s) reviewed by me Problem List/Assessment/Plan Problem List/Assessment/Plan # Sepsis likely due to gastroenteritis infectious vs noninfectious # Intractable nausea and vomiting # Anion gap Metabolic Acidosis # Severe Dehydration # Starvation ketosis # Rule out Boerhaave syndrome #Hepatic steatosis #Ruled out Aspration Pneumonia IV fluids Currently under empiric IV antibiotic (metronidazole and ceftriaxone) Stool Occult blood, WBC, culture, C diff Cultures ordered (blood, urine and stool), pending Abdomen CT: No acute abdominal or pelvic findings. Hepatic steatosis. Counseled on healthy lifestyle modifications Ordered hepatitis panel # Acute complicated UTI # History of UTI Currently under empiric IV antibiotic (metronidazole and ceftriaxone) Urine culture ordered STI panel #Secondary amenorrhea Last menstrual periods approximately three months ago TSH within normal limits. Ordered prolactin level. If elevated we will order neuroimaging #Hypertension Started home medication hydrochlorothiazide Ruling out secondary causes of hypertension Ordered echocardiogram #Polysubstance abuse disorder - patient counseled on cessation of smoking, alcohol for 13 minutes PPI prophylaxis: Protonix 40 mg DVT prophylaxis: Not Indicated Goals of care discussed with the patient for more than 27 minutes: Full code status Case discussed with Dr. Soriano, patient and RN Plan discussed with: Patient, Other (RN) My Orders My Orders Orders - AUGUSTO,CHACORTA RESIDENT Procedure Category Date Status Time Hydrochlorothiazide PHA 05/01/25 In Process Tablet (Hydrochlorot 10:00 Hydrochlorothiazide PHA 04/30/25 Logged Tablet (Hydrochlorot 19:15 Date of Service: Apr 30, 2025 Billing Provider: SUHAS SORIANO MD Common Visit Codes: [id number] INP/OBS CARE(HIGH) CHACORTA CASAS RESIDENT Apr 30, 2025 19:27 RADHA MARTINEZ RESIDENT May 03, 2025 00:50 SUHAS SORIANO MD May 03, 2025 22:23
[2025-04-30] MEDS: hydroCHLOROthiazide 25 MG TAB PO ONE (20:35)
[2025-05-01] VITALS (8 sets, daily range): BP systolic 135–151; BP diastolic 84–102; PULSE 75–150; RESP 12–20; TEMP 98–99.2; O2SAT 93–97
[2025-05-01 07:30] LABS: Hematocrit 36.4 % (36.0-46.0); Hemoglobin 12.5 g/dL (12.2-16.2); Mean Corpuscular Hemoglobin 30.5 pg (28.0-32.0); Mean Corpuscular Volume 88.7 fL (80.0-100.0); Nucleated Red Blood Cells % 0.0 %
[2025-05-01 07:41] LABS: Anion Gap 14 (5-15); Carbon Dioxide 24 mmol/L (20-31)
[2025-05-01 07:46] LABS: Glucose 86 mg/dL (74-106)
[2025-05-01 07:51] LABS: BUN/Creatinine Ratio 9.6 (10.0-20.0); Blood Urea Nitrogen < 5 mg/dL (9-23); Calcium 8.7 mg/dL (8.7-10.4); Chloride 97 mmol/L (98-107); Potassium 3.2 mmol/L (3.5-5.1); Sodium 135 mmol/L (136-145)
[2025-05-01] MEDS: hydroCHLOROthiazide 25 MG TAB PO SCH (09:57)
[2025-05-01] MEDS: PANTOPRAZOLE 40 MG/10 ML VIAL INJ IV SCH (09:58)
--- NOTE | 2025-05-01 14:30 | DVH ---
INDICATION: Hypertension TECHNIQUE: Multiple real-time sonographic images of the kidneys and bladder were obtained. COMPARISON: None FINDINGS: Velocities and resistive indices within normal limits. IMPRESSION: 1. Unremarkable examination.
--- NOTE | 2025-05-01 19:15 | DVHPNRES ---
Progress Note Date Seen: May 01, 2025 Resident Creating Document: CHACORTA CASAS RESIDENT Medical Necessity Reason Pt with a Central, PICC or Fol: No Subjective Review of Systems Jessica Garcia is a 25-year-old female who presented to the ED with chief complaints of intractable nausea and vomiting which was sudden in onset, associated with 4 episodes of watery diarrhea since Tuesday night, noticed little amount of blood in the vomit. patient was unable to keep anything down and vomited every 5 minutes, says she had left-sided abdominal pain due to cramps and felt dizzy and dehydrated. Patient also complained of mild pain in the throat and substernal pain. Patient has irregular periods with last menstrual period being 3 months ago. Patient denies any recent travel, sick contacts, eating outside. Past medical history: Hypertension Past surgical history: Denies Family history: Reviewed, noncontributory Social history: Lives in [place] with family. quit smoking in 2022, 5 drinks per week, denies drug use Allergies: Denies Home medication: Hydrochlorothiazide The patient was seen and examined at the bedside. No acute overnight events. Patient's diet was advanced to clear liquid from NPO. However the patient was not tolerating the food well, she vomited and felt like her stomach hurts after eating. She denies any chest pain, shortness of breath, fever or any other complaints. Objective vital signs Vital Sign Date Time Temp Pulse Resp B/P (MAP) Pulse Ox O2 Delivery O2 Flow Rate FiO2 05/01/25 17:01 98.7 91 12 141/102 (115) 93 98.7 05/01/25 08:00 Room Air* 0 21 Total Intake and Output 04/30/25 04/30/25 05/01/25 15:00 23:00 07:00 Intake Total 100 ml 280 ml Balance 100 ml 280 ml medications Current Medications Medications Dose Ordered Sig/Zahida Route Start Time Stop Time Status Last Admin Dose Admin Acetaminophen/ Hydrocodone Bitart 1 tab Q4HP PRN PO 04/30/25 00:30 04/30/25 04:11 1 TAB Ondansetron HCl 4 mg Q4HP PRN IV 04/30/25 00:30 05/01/25 16:58 4 MG Ceftriaxone Sodium 50 ml @ 100 mls/hr DAILY@09 IV 05/01/25 09:00 05/01/25 09:56 100 MLS/HR Metronidazole 100 ml @ 100 mls/hr Q8HR IV 04/30/25 06:00 05/01/25 13:53 100 MLS/HR Pantoprazole Sodium 40 mg DAILY IV 05/01/25 10:00 05/01/25 09:58 40 MG Hydrochlorothiazide 12.5 mg DAILY PO 05/01/25 10:00 05/01/25 09:57 12.5 MG Examination Pt is lying on bed General Appearance: Alert, Oriented X3, Cooperative, Mild distress HEENT: Atraumatic, Mucous membranes moist/pink Respiratory: Clear to auscultation, Normal air movement, No added sounds Cardiovascular: Regular rate, Normal S1, Normal S2, No murmurs Abdominal/ : Active bowel sounds, Soft, no distention, no tenderness Extremities: No edema, Normal pulses, No tenderness/swelling Skin: No Significant rash, except past surgical scars Neuro: Normal speech, sensorimotor deficits none Psych/Mental Status: Mental status NL, Mood NL Nurse was there as commercial lines account executive during examination laboratory and microbiology Laboratory Tests 05/01/25 06:58 Test 05/01/25 06:58 Range/Units Serum Glucose 86 74-106 mg/dL Microbiology Date/Time Source Procedure Growth Status 04/30/25 11:54 Blood Blood Culture - Preliminary NO GROWTH AFTER 24 HOURS OF INCUBATION. Resulted 04/30/25 05:06 Stool Ordered 04/29/25 13:00 Voided Urine Urine Culture - Preliminary Resulted Labs and/or images reviewed: Labs reviewed by me, Image(s) reviewed by me Problem List/Assessment/Plan Problem List/Assessment/Plan # Sepsis likely due to gastroenteritis infectious vs noninfectious # Intractable nausea and vomiting # Anion gap Metabolic Acidosis # Severe Dehydration # Starvation ketosis # Rule out Boerhaave syndrome #Hepatic steatosis #Ruled out Aspration Pneumonia IV fluids Currently under empiric IV antibiotic (metronidazole and ceftriaxone) Stool Occult blood, WBC, culture, C diff Cultures ordered (blood, urine and stool), pending Abdomen CT: No acute abdominal or pelvic findings. Hepatic steatosis. Counseled on healthy lifestyle modifications Ordered hepatitis panel Try to advance diet from NPO to clear liquid, patient did not tolerate. # Acute complicated UTI # History of UTI Currently under empiric IV antibiotic (metronidazole and ceftriaxone) Urine culture ordered STI panel #Secondary amenorrhea Last menstrual periods approximately three months ago TSH within normal limits. Ordered prolactin level. If elevated we will order neuroimaging #Hypertension Started home medication hydrochlorothiazide Ordered echocardiogram Hypertension at a young age deemed it necessary to do workup for secondary hypertension. Renin/aldosterone ratio, renal artery Doppler study, urine electrolytes ordered #Polysubstance abuse disorder - patient counseled on cessation of smoking, alcohol for 13 minutes PPI prophylaxis: Protonix 40 mg DVT prophylaxis: Not Indicated Goals of care discussed with the patient for more than 27 minutes: Full code status Case discussed with Dr. Soriano, patient and RN Plan discussed with: Patient, Other (RN, family) My Orders My Orders Orders - CHACORTA CASAS RESIDENT Procedure Category Date Status Time Renal Artery Comp US 05/01/25 Resulted 09:37 Renin Activity And LAB 05/01/25 In Process Aldosterone 09:37 Urine Potassium LAB 05/01/25 Logged 09:37 Urine Sodium LAB 05/01/25 Logged 09:37 Clear Liq Diet DIET 05/01/25 Transmitted Dinner Date of Service: May 01, 2025 Billing Provider: SUHAS SORIANO MD Common Visit Codes: [id number] INP/OBS CARE(HIGH) CHACORTA CASAS RESIDENT May 01, 2025 19:15 RADHA MARTINEZ RESIDENT May 03, 2025 00:56 SUHAS SORIANO MD May 03, 2025 22:46
[2025-05-02] VITALS (8 sets, daily range): BP systolic 129–148; BP diastolic 84–101; PULSE 73–105; RESP 15–19; TEMP 96.9–98.3; O2SAT 96–98
[2025-05-02] MEDS ORDERED: LACTATED RINGER'S 1,000 ML IV SCH (00:45)
[2025-05-02] MEDS: LACTATED RINGER'S 1,500 ML IV ONE (01:36)
[2025-05-02] MEDS: diphenhdrAMINE HCL 50 MG/1 ML VL IV ONE (01:36)
[2025-05-02] MEDS: LACTATED RINGER'S 1,000 ML IV SCH (04:31)
[2025-05-02 06:45] LABS: Hematocrit 36.7 % (36.0-46.0); Hemoglobin 13.1 g/dL (12.2-16.2); Mean Corpuscular Hemoglobin 31.4 pg (28.0-32.0); Mean Corpuscular Volume 87.9 fL (80.0-100.0); Nucleated Red Blood Cells % 0.0 %
[2025-05-02 06:56] LABS: Anion Gap 14 (5-15); Carbon Dioxide 26 mmol/L (20-31); Sodium 137 mmol/L (136-145)
[2025-05-02 06:58] LABS: Calcium 8.6 mg/dL (8.7-10.4); Chloride 97 mmol/L (98-107); Potassium 2.8 mmol/L (3.5-5.1)
[2025-05-02 07:02] LABS: BUN/Creatinine Ratio 12.1 (10.0-20.0); Glucose 82 mg/dL (74-106)
[2025-05-02 07:06] LABS: Blood Urea Nitrogen 7 mg/dL (9-23)
[2025-05-02] MEDS: diphenhdrAMINE HCL 50 MG/1 ML VL IV PRN (09:01)
[2025-05-02] MEDS: POTASSIUM CHL 20MEQ/100ML 100 ML IV SCH (10:10)
--- NOTE | 2025-05-02 16:33 | DVHPNRES ---
Progress Note Date Seen: May 02, 2025 Resident Creating Document: CHACORTA CASAS RESIDENT Medical Necessity Reason Pt with a Central, PICC or Fol: No Subjective Review of Systems Jessica Garcia is a 25-year-old female who presented to the ED with chief complaints of intractable nausea and vomiting which was sudden in onset, associated with 4 episodes of watery diarrhea since Tuesday night, noticed little amount of blood in the vomit. patient was unable to keep anything down and vomited every 5 minutes, says she had left-sided abdominal pain due to cramps and felt dizzy and dehydrated. Patient also complained of mild pain in the throat and substernal pain. Patient has irregular periods with last menstrual period being 3 months ago. Patient denies any recent travel, sick contacts, eating outside. Past medical history: Hypertension Past surgical history: Denies Family history: Reviewed, noncontributory Social history: Lives in [place] with family. quit smoking in 2022, 5 drinks per week, denies drug use Allergies: Denies Home medication: Hydrochlorothiazide The patient was seen and examined at the bedside. No acute overnight events. Patient's diet was advanced to clear liquid from NPO. However, the patient could not tolerate liquid food, she vomited several times. She denies any chest pain, shortness of breath, fever or any other complaints. Objective vital signs Vital Sign Date Time Temp Pulse Resp B/P (MAP) Pulse Ox O2 Delivery O2 Flow Rate FiO2 05/02/25 16:25 98.3 73 16 129/88 (102) 97 98.3 05/02/25 08:00 Room Air* 0 21 Total Intake and Output 05/01/25 05/01/25 05/02/25 14:59 22:59 06:59 Intake Total 150 ml 100 ml 2600 ml Balance 150 ml 100 ml 2600 ml medications Current Medications Medications Dose Ordered Sig/Zahida Route Start Time Stop Time Status Last Admin Dose Admin Acetaminophen/ Hydrocodone Bitart 1 tab Q4HP PRN PO 04/30/25 00:30 04/30/25 04:11 1 TAB Ondansetron HCl 4 mg Q4HP PRN IV 04/30/25 00:30 05/01/25 21:40 4 MG Ceftriaxone Sodium 50 ml @ 100 mls/hr DAILY@09 IV 05/01/25 09:00 05/02/25 08:48 100 MLS/HR Metronidazole 100 ml @ 100 mls/hr Q8HR IV 04/30/25 06:00 05/02/25 05:09 100 MLS/HR Pantoprazole Sodium 40 mg DAILY IV 05/01/25 10:00 05/02/25 08:48 40 MG Hydrochlorothiazide 12.5 mg DAILY PO 05/01/25 10:00 05/02/25 08:49 12.5 MG Diphenhydramine HCl 25 mg Q6HP PRN IV 05/02/25 00:45 05/02/25 09:01 25 MG Lactated Ringer's 1,000 ml @ 100 mls/hr Q10H IV 05/02/25 04:30 05/02/25 04:31 100 MLS/HR Examination Pt is lying on bed General Appearance: Alert, Oriented X3, Cooperative, Mild distress HEENT: Atraumatic, Mucous membranes moist/pink Respiratory: Clear to auscultation, Normal air movement, No added sounds Cardiovascular: Regular rate, Normal S1, Normal S2, No murmurs Abdominal/ : Active bowel sounds, Soft, no distention, no tenderness, no rigidity or no signs of peritonitis Extremities: No edema, Normal pulses, No tenderness/swelling Skin: No Significant rash, except past surgical scars Neuro: Normal speech, sensorimotor deficits none Psych/Mental Status: Mental status NL, Mood NL Nurse was there as cell room operator during examination laboratory and microbiology Laboratory Tests 05/02/25 05:58 Test 05/02/25 05:58 Range/Units Serum Glucose 82 74-106 mg/dL Microbiology Date/Time Source Procedure Growth Status 04/30/25 11:54 Blood Blood Culture - Preliminary NO GROWTH AFTER 48 HOURS OF INCUBATION. Resulted 04/30/25 05:06 Stool Ordered 04/29/25 13:00 Voided Urine Urine Culture - Final Complete Problem List/Assessment/Plan Problem List/Assessment/Plan # Sepsis likely due to gastroenteritis infectious vs noninfectious # Intractable nausea and vomiting # Anion gap Metabolic Acidosis # Severe Dehydration # Starvation ketosis # Rule out Boerhaave syndrome #Hepatic steatosis #Ruled out Aspration Pneumonia IV fluids Currently under empiric IV antibiotic (metronidazole and ceftriaxone) Stool Occult blood, WBC, culture, C diff Cultures ordered (blood, urine and stool), pending Abdomen CT: No acute abdominal or pelvic findings. Hepatic steatosis. Counseled on healthy lifestyle modifications Ordered hepatitis panel Try to advance diet from NPO to clear liquid, patient did not tolerate. Ordered GI consult to evaluate for eventual endoscopy # Acute complicated UTI # History of UTI Currently under empiric IV antibiotic (metronidazole and ceftriaxone) Urine culture ordered STI panel #Secondary amenorrhea Last menstrual periods approximately three months ago TSH within normal limits. Ordered prolactin level. If elevated we will order neuroimaging #Hypertension Started home medication hydrochlorothiazide Ordered echocardiogram Hypertension at a young age deemed it necessary to do workup for secondary hypertension. Renin/aldosterone ratio, renal artery Doppler study, urine electrolytes ordered #Polysubstance abuse disorder - patient counseled on cessation of smoking, alcohol for 13 minutes PPI prophylaxis: Protonix 40 mg DVT prophylaxis: Not Indicated Goals of care discussed with the patient for more than 27 minutes: Full code status Case discussed with Dr. Soriano, patient and RN Plan discussed with: Patient, Other (RN) My Orders My Orders Orders - CHACORTA CASAS RESIDENT Procedure Category Date Status Time * Hand Edge Bander CONS 05/01/25 Transmitted Consult * [facility] [employer] CONS 05/02/25 Transmitted 13:01 Date of Service: May 02, 2025 Billing Provider: SUHAS SORIANO MD Common Visit Codes: [id number] INP/OBS CARE(HIGH) CHACORTA CASAS RESIDENT May 02, 2025 16:33 RADHA MARTINEZ RESIDENT May 03, 2025 00:59 SUHAS SORIANO MD May 10, 2025 21:34
[2025-05-03 01:11] VITALS: BP 142/101; PULSE 84; RESP 20; TEMP 98.2; O2SAT 95
[2025-05-03 05:20] VITALS: BP 137/95; PULSE 90; RESP 20; TEMP 98; O2SAT 98
[2025-05-03 08:00] VITALS: PULSE 72
[2025-05-03 09:00] VITALS: BP 156/105; PULSE 74; RESP 18; TEMP 98.1; O2SAT 97
[2025-05-03 09:27] LABS: Hematocrit 38.6 % (36.0-46.0); Hemoglobin 13.5 g/dL (12.2-16.2); Mean Corpuscular Hemoglobin 30.5 pg (28.0-32.0); Mean Corpuscular Volume 87.7 fL (80.0-100.0); Nucleated Red Blood Cells % 0.1 %
[2025-05-03 09:42] LABS: Anion Gap 14 (5-15); Carbon Dioxide 24 mmol/L (20-31)
[2025-05-03 09:48] LABS: BUN/Creatinine Ratio 12.8 (10.0-20.0)
[2025-05-03 09:50] LABS: Blood Urea Nitrogen 6 mg/dL (9-23); Calcium 8.4 mg/dL (8.7-10.4); Chloride 96 mmol/L (98-107); Glucose 73 mg/dL (74-106); Potassium 3.1 mmol/L (3.5-5.1); Sodium 134 mmol/L (136-145)
[2025-05-03] MEDS ORDERED: POTASSIUM CHLORIDE 40 MEQ, LIDOCAINE 1% (LOCAL ANESTH.) 4 ML in SODIUM CHL 0.9% 250 ML IV ONE (10:45)
[2025-05-03 10:57] LABS: Hepatitis B Surface Antigen Negative (Negative)
[2025-05-03 10:58] LABS: Hepatitis C Antibody Negative (Negative)
[2025-05-03 13:00] VITALS: BP 150/120; PULSE 72; RESP 19; TEMP 98.2; O2SAT 97
--- NOTE | 2025-05-03 14:10 | DVHDSRES ---
Discharge Summary Date of Admission Resident Creating Document: CHACORTA CASAS Apr 30, 2025 at 00:19 Date of Discharge: May 03, 2025 Admitting Diagnosis Infectious gastroenteritis Severe dehydration due to infectious gastroenteritis Secondary amenorrhea Hypertension Labs/Diagnostic Data: Laboratory Results Test 05/03/25 08:55 05/02/25 05:58 05/01/25 13:00 04/30/25 10:30 White Blood Count 7.3 10^3/uL (4.4-10.8) Red Blood Count 4.41 10^6/uL (4.0-5.20) Hemoglobin 13.5 g/dL (12.2-16.2) Hematocrit 38.6 % (36.0-46.0) Mean Corpuscular Volume 87.7 fL (80.0-100.0) Mean Corpuscular Hemoglobin 30.5 pg (28.0-32.0) Mean Corpuscular Hemoglobin Concent 34.8 g/dL (32.0-36.0) Red Cell Distribution Width 12.7 % (11.8-14.3) Platelet Count 376 10^3/uL (140-450) Mean Platelet Volume 6.7 fL (6.9-10.8) Neutrophils (%) (Auto) 74.1 % (37.0-80.0) Lymphocytes (%) (Auto) 16.1 % (10.0-50.0) Monocytes (%) (Auto) 9.1 % (0.0-12.0) Eosinophils (%) (Auto) 0.2 % (0.0-7.0) Basophils (%) (Auto) 0.5 % (0.0-2.0) Neutrophils # (Auto) 5.4 10 ^3/uL (1.6-8.6) Lymphocytes # (Auto) 1.2 10 ^3/uL (0.4-5.4) Monocytes # (Auto) 0.7 10 ^3/uL (0-1.3) Eosinophils # (Auto) 0 10 ^3/uL (0-0.8) Basophils # (Auto) 0 10 ^3/uL (0-0.2) Nucleated Red Blood Cells 0.1 % Sodium Level 134 mmol/L (136-145) Potassium Level 3.1 mmol/L (3.5-5.1) Chloride Level 96 mmol/L (98-107) Carbon Dioxide Level 24 mmol/L (20-31) Anion Gap 14 (5-15) Blood Urea Nitrogen 6 mg/dL (9-23) Creatinine 0.47 mg/dL (0.550-1.02) Glomerular Filtration Rate Calc 135 mL/min (>90) BUN/Creatinine Ratio 12.8 (10.0-20.0) Serum Glucose 73 mg/dL (74-106) Calcium Level 8.4 mg/dL (8.7-10.4) Prolactin 17.59 ng/mL (2.8-29.2) Cortisol AM Sample 17.19 ug/dL (5.27-22.45) Treponema pallidum Antibody Non-reactive (Negative) Hepatitis A IgM Antibody Negative Hepatitis B Surface Antigen Negative (Negative) Hepatitis B Core IgM Antibody Negative (Negative) Hepatitis C Antibody Negative (Negative) HIV (1&2) Antibody Negative (Negative) Creatine Kinase 97 U/L (34-145) Total Bilirubin 1.0 mg/dL (0.2-1.0) Aspartate Amino Transferase (AST) 25 U/L (13-40) Alanine Aminotransferase (ALT) 41 U/L (7-40) Alkaline Phosphatase 70 U/L (46-116) Total Protein 7.1 g/dL (5.7-8.2) Albumin 4.1 g/dL (3.2-4.8) Test 04/30/25 07:41 04/30/25 00:59 04/29/25 21:06 04/29/25 15:47 Lactic Acid Level 1.2 mmol/L (0.4-2.0) Prothrombin Time 11.6 sec (9.3-11.8) Prothrombin Time INR 1.11 (0.9-1.15) Hemoglobin A1c 5.2 % A1C (<5.7) Thyroid Stimulating Hormone (TSH) 1.16 uIU/mL (0.55-4.78) Troponin I High Sensitivity 8 ng/L (</=34) Lipase 36 U/L (12-53) Plasma/Serum Blood Alcohol < 3.0 mg/dL (<10) Test 04/29/25 13:27 04/29/25 13:00 D-Dimer, Quantitative 0.55 mg/L FEU (0.0-0.49) Urine Color Yellow (Yellow) Urine Clarity Turbid (Clear) Urine pH 5.5 (5.0-9.0) Urine Specific [place] 1.029 (1.001-1.035) Urine Protein 2+ (Negative) Urine Ketones 4+ (Negative) Urine Blood Trace /uL (Negative) Urine Nitrite Negative (Negative) Urine Bilirubin 1+ (Negative) Urine Urobilinogen 2 mg/dL (Negative) Urine Leukocyte Esterase Negative /uL (Negative) Urine RBC 4 /hpf (0 - 4) Urine Microscopic WBC 5 /HPF (0-5) Urine Squamous Epithelial Cells Few /hpf (<5) Urine Bacteria Few /hpf (None Seen) Urine Hyaline Casts Many /lpf (0 - 2) Urine Mucus Few (None Seen) Urine Glucose Trace mg/dL (Normal) Urine Test Negative (Negative) Urine Opiates Screen Neg (NEGATIVE) Urine Fentanyl Screen Neg (NEGATIVE) Urine Barbiturates Screen Neg (NEGATIVE) Urine Phencyclidine Screen Neg (NEGATIVE) Urine Amphetamines Screen Neg (NEGATIVE) Urine Benzodiazepines Screen Neg (NEGATIVE) Urine Cocaine Screen Neg (NEGATIVE) Urine Cannabinoids Screen Neg (NEGATIVE) Other Laboratory Tests 05/03/25 08:55 Brief Hx & Hospital Course: Jessica Garcia is a 25-year-old female who presented to the ED with chief complaints of intractable nausea and vomiting which was sudden in onset, associated with 4 episodes of watery diarrhea since Tuesday night, noticed little amount of blood in the vomit. patient was unable to keep anything down and vomited every 5 minutes, says she had left-sided abdominal pain due to cramps and felt dizzy and dehydrated. Patient also complained of mild pain in the throat and substernal pain. Patient has irregular periods with last menstrual period being 3 months ago. Patient denies any recent travel, sick contacts, eating outside. Past medical history: Hypertension Past surgical history: Denies Family history: Reviewed, noncontributory Social history: Lives in [place] with family. quit smoking in 2022, 5 drinks per week, denies drug use Allergies: Denies Home medication: Hydrochlorothiazide Brief hospital course: Sepsis likely due to gastroenteritis and UTI associated with anion gap metabolic acidosis symptomatic by intractable nausea and vomiting, requiring on admission NPO, IV fluids, empiric IV antibiotics (metronidazole and ceftriaxone) and pain management. Completed test due to secondary amenorrhea for 3 months, which was negative. Completed abdomen and pelvis CT which showed no acute abdominal or pelvic findings, hepatic steatosis. Blood, urine, acute hepatitis panel and STI were negative. Patient stop having diarrhea since admitted to the hospital, could not obtain stool sample for C. diff. Due to early onset hypertension, completed echocardiogram (LVEF 75%, normal valves), dupplex renal US (unremarkable) and laboratory test (renin, renin/aldosterone, TSH, cortisol), all within normal limits. Regarding her secondary amenorrhea, laboraty (TSH and prolactin) and imaging (abdomen and pelvis CT) where within normal limits. PAtient gradually tolerated clear liquid diet and later full liquid diet after 3 days of IV antibiotics. Patient hemodynamically stable, asymptomatic, tolerating clear liquid diet, in conditions to be discharged home. Was granted under optimal medical therapy (ciprofloxacin and metronidazole for 7 days, and hydrochlorothiazide), gave advice on healthy lifestyle habits (discontinue marijuana use) and follow up with PCP,GI specialist, cardiology and gynecology. DIAGNOSIS # Sepsis likely due to gastroenteritis infectious vs noninfectious # Intractable nausea and vomiting # Anion gap Metabolic Acidosis # Severe Dehydration # Starvation ketosis # Acute complicated UTI # Ruled out Boerhaave syndrome # Hepatic steatosis # Ruled out Aspration Pneumonia # History of UTI # Secondary amenorrhea # Hypertension # Marijuana use - counseled on cessation for over 16 minutes Goals of care discussed with the patient for more than 27 minutes: Full code status Case discussed with Dr. Soriano, patient and RN Physical Examination Pt is lying on bed General Appearance: Alert, Oriented X3, Cooperative, Mild distress HEENT: Atraumatic, Mucous membranes moist/pink Respiratory: Clear to auscultation, Normal air movement, No added sounds Cardiovascular: Regular rate, Normal S1, Normal S2, No murmurs Abdominal/ : Active bowel sounds, Soft, no distention, no tenderness, no rigidity or no signs of peritonitis Extremities: No edema, Normal pulses, No tenderness/swelling Skin: No Significant rash, except past surgical scars Neuro: Normal speech, sensorimotor deficits none Psych/Mental Status: Mental status NL, Mood NL Nurse was there as corsetier during examination Operations or Procedures EXAM: Two-dimensional and M-mode echocardiogram with Doppler and color Doppler. Blood Pressure: 136/98 mmHg INDICATION Hypertension RISK FACTORS Height: 5' 2", Weight: 163 DIMENSIONS LVDd 4.6 (3.8-5.7cm) LA (2D) 3.8 (1.9-4.0cm) Aortic Root 2.9 (2.0- 3.7cm) LVDs 2.6 (2.5-4.0cm) LA (MM) (1.9-4.0cm) Aortic Cusp Exc 1.6 (1.5- 2.0cm) EF (%) 75.0 (55-70%) Rt. Atrium 3.5 (1.9-4.0cm) Asc. Aorta cm IVSd 1.0 (0.7-1.1cm) RV (D) (1.8-2.4cm) PWd 0.8 (0.7-1.1cm) Mitral Valve Mitral Mitral Stenosis E wave 1.00m/s MV Mean GR. mmHg A wave 0.90m/s MV Peak GR. mmHg E/A ratio 1.1 2D MVA cm2 Aortic Valve Aortic Valve Aortic Stenosis V1 1.10m/s AO Mean GR. 5mmHg V2 1.60m/s AO Peak GR. 10mmHg LVOT Diameter 1.7 (1.8-2.4cm) Doppler REGGIE 1.56cm2 Pulmonic Valve V2 1.00m/s Conclusion LV EF IS 75% AND IS NORMAL NORMAL VALVES NORMAL RV FUNCTION NO EFFUSION SIGNED BY: FREDO TRUJILLO MD SIGNED DATE/TIME: 05/04/25 0140 Exam: CT CT AB PEL WO CON-NO ORAL OR IV History: Ruled out intra-abdominal pathology Comparison Study: CT CT AB PEL WO CON-NO ORAL OR IV on DOS: 04/04/23 Technique: Multidetector spiral CT of the abdomen and pelvis was performed from lung bases to pubic symphysis. Imaging was performed without intravenous contrast. Coronal and sagittal multiplanar reformats were obtained from the axial data set by the technologist. Radiation Dose : 1. Abdomen/Pelvis: CTDIvol 10.85 mGy, DLP 627.66 mGy*cm. Findings: Evaluation of vasculature and solid organs is limited due to lack of intravenous contrast use. Lung Bases: Lung bases are clear. Visualized portions of the heart and pericardium are unremarkable. Liver: The liver is normal in size. No focal lesions. Diffusely hypoattenuating liver parenchyma consistent with hepatic steatosis. Gallbladder and Biliary Tree: The gallbladder is unremarkable. No intrahepatic or extrahepatic biliary ductal dilatation. Spleen: Unremarkable Pancreas: The pancreas is grossly unremarkable. Adrenal Glands: Unremarkable Kidneys: Kidneys are unremarkable without calculi or hydronephrosis. GI tract: The stomach is grossly normal in appearance. No evidence of small bowel wall thickening or abnormal dilatation to suggest bowel obstruction. The colon is unremarkable. The appendix is not visualized, however no inflammatory changes in the right lower quadrant to suggest acute appendicitis. Peritoneum/mesentery/retroperitoneum. No evidence of free intraperitoneal air. No ascites. No evidence of suspicious lymphadenopathy. Abdominal Wall: Unremarkable. Vasculature: The visualized abdominal aorta is normal in size and caliber. Evaluation of abdominal and pelvic vessels is limited due to lack of intravenous contrast. Urinary Bladder: Grossly unremarkable for degree of distention. Pelvic Organs: Unremarkable Musculoskeletal: No aggressive focal bony lesions, acute fractures or dislocation. IMPRESSION: 1. No acute abdominal or pelvic findings. 2. Hepatic steatosis. ATED BY: NAVI LOVETT MD DICTATED DATE/TIME: 04/30/25 0701 CHEST RADIOGRAPH Indication: upright rule out free air and aspiration pneumonia Technique: Single frontal view of the chest was obtained COMPARISON: None FINDINGS: Lines and Tubes: None Lungs: Clear Pleura: No effusion. No pneumothorax. Cardiomediastinal contours: Unremarkable Bones: Unremarkable IMPRESSION: 1. No acute disease. ATED BY: ROMULO BRITT MD DICTATED DATE/TIME: 04/30/25 0618 Bilateral lower extremity venous duplex Clinical History: edema Comparison: None Findings: Duplex Doppler evaluation of the deep venous systems of both lower extremities from the common femoral veins to the popliteal veins including color Doppler and spectral/pulsed waveform analysis was performed. RIGHT SIDE: The common femoral vein demonstrates appropriate compressibility and waveform variability. There is compressibility/patency of the great saphenous vein at the proximal thigh. The femoral vein demonstrates appropriate compressibility and waveform variability. The deep femoral vein demonstrates appropriate compressibility and waveform variability. The popliteal vein demonstrates appropriate compressibility and waveform variability. There is normal compressibility at the tibioperoneal trunk. LEFT SIDE: The common femoral vein demonstrates appropriate compressibility and waveform variability. There is compressibility/patency of the great saphenous vein at the proximal thigh. The femoral vein demonstrates appropriate compressibility and waveform variability. The deep femoral vein demonstrates appropriate compressibility and waveform variability. The popliteal vein demonstrates appropriate compressibility and waveform variability. There is normal compressibility at the tibioperoneal trunk. IMPRESSION: No right or left femoropopliteal venous thrombosis. If clinical concern/symptoms persist or worsen, short-interval follow-up study is suggested. END IMPRESSION: ATED BY: JULISSA MICHEL MD DICTATED DATE/TIME: 04/30/25 0844 INDICATION: Hypertension TECHNIQUE: Multiple real-time sonographic images of the kidneys and bladder were obtained. COMPARISON: None FINDINGS: Velocities and resistive indices within normal limits. IMPRESSION: 1. Unremarkable examination. ATED BY: JULISSA MICHEL MD DICTATED DATE/TIME: 05/01/25 1427 Condition at Discharge: Stable Final Diagnosis/Problems List # Sepsis likely due to gastroenteritis infectious vs noninfectious # Intractable nausea and vomiting # Anion gap Metabolic Acidosis # Severe Dehydration # Starvation ketosis # Acute complicated UTI # Ruled out Boerhaave syndrome # Hepatic steatosis # Ruled out Aspration Pneumonia # History of UTI # Secondary amenorrhea # Hypertension # Marijuana use - counseled on cessation for over 16 minutes Discharge Disposition: Home Discharge Instruct/Medications Diet: Consistent carbohydrate Activity: No Restrictions, As Tolerated Follow Up/Referral: Follow up with PCP in a week Cardiology GI OBGYN Medications: as per EMR Ciprofloxacin 500 mg PO bid Metronidazole 500 mg PO tid Hydrochlorothiazide Scheduled Ciprofloxacin Hcl (Ciprofloxacin Hcl), 1 TAB PO BID Hctz (Hydrochlorothiazide), 12.5 MG PO DAILY, (Reported) Metronidazole (Metronidazole), 500 MG PO TID Discharge Statement: "Patient was advised to return to the ER or call 911 if any headaches, dizziness, shortness of breath, chest pain, abdominal pain, bleeding, fevers, or worsening of medical condition. Patient was counseled about treatment plan, medications, possible side effects, patientverbalized understanding. All questions were answered to the best of my ability. This discharge took greater then 30 minutes in planning, reviewing documentation, counseling the patient, and discussing with other team members." ASSESSMENT ASSESSMENT Assessment Gastroenteritis Date of Service: May 03, 2025 Billing Provider: SUHAS SORIANO MD Common Visit Codes: 75889-XSX/OBS DISCH DAY >30min CHACORTA CASAS RESIDENT May 03, 2025 14:09 RADHA MARTINEZ RESIDENT May 05, 2025 22:11 SUHAS SORIANO MD May 11, 2025 21:30
[2025-05-03 14:36] VITALS: BP 150/120; PULSE 72; RESP 19; TEMP 98.2; O2SAT 97
--- NOTE | 2025-05-04 01:40 | DVHSR ---
APPROVED REPORT EXAM: Two-dimensional and M-mode echocardiogram with Doppler and color Doppler. Blood Pressure: 136/98 mmHg INDICATION Hypertension RISK FACTORS Height: 5' 2", Weight: 163 DIMENSIONS LVDd4.6 (3.8-5.7cm)LA (2D)3.8 (1.9-4.0cm)Aortic Root2.9 (2.0-3.7cm) LVDs2.6 (2.5-4.0cm)LA (MM) (1.9-4.0cm)Aortic Cusp Exc1.6 (1.5-2.0cm) EF (%) 75.0 (55-70%)Rt. Atrium3.5 (1.9-4.0cm)Asc. Aorta cm IVSd1.0 (0.7-1.1cm)RV (D) (1.8-2.4cm) PWd0.8 (0.7-1.1cm) Mitral Valve MitralMitral Stenosis E wave1.00m/sMV Mean GR.mmHg A wave0.90m/sMV Peak GR.mmHg E/A ratio1.12D MVAcm2 Aortic Valve Aortic ValveAortic Stenosis V11.10m/Cristina Mean GR.5mmHg V21.60m/Cristina Peak GR.10mmHg LVOT Diameter1.7 (1.8-2.4cm)Doppler AVA1.56cm2 Pulmonic Valve V21.00m/s Conclusion LV EF IS 75% AND IS NORMAL NORMAL VALVES NORMAL RV FUNCTION NO EFFUSION
[2025-05-05] MEDS ORDERED: CIPR500T4 PO (22:02)
[2025-05-05] MEDS ORDERED: MET500T PO (22:02)
== END 2025-05-03 15:10 | disposition home or self-care (01) | DRG 720 ==
LOC: ER 12:29 → OVERFLOW 04-30 00:19 → TELE-EAST 04-30 16:31
PROVIDERS: ADMIT Student in an Organized Health Care Education/Training Program; ATTEND Student in an Organized Health Care Education/Training Program
DX: A41.9 Sepsis, unspecified organism (principal); E87.20 Acidosis, unspecified; A09 Infectious gastroenteritis and colitis, unspecified; N39.0 Urinary tract infection, site not specified; E86.0 Dehydration; E88.89 Other specified metabolic disorders; T73.0XXA Starvation, initial encounter; I10 Essential (primary) hypertension; F19.10 Other psychoactive substance abuse, uncomplicated; N91.1 Secondary amenorrhea; K76.0 Fatty (change of) liver, not elsewhere classified; Z79.899 Other long term (current) drug therapy; Z82.49 Family history of ischemic heart disease and other diseases of the circulatory system; X58.XXXA Exposure to other specified factors, initial encounter
CPT/HCPCS: 36415; 71045; 74176; 80048; 80053; 80074; 80307; 80320; 81001; 81025; 82088; 82533; 82550; 83036; 83605; 83690; 84146; 84244; 84443; 84484; 85025; 85379; 85610; 86703; 86780; 87040; 87086; 93005; 93306; 93970; 93975; G0378; J0153; J2003; J2405; J2470; J3480; J3490